=== PATIENT | female | born 1950 | race Caucasian/White ===

== ENCOUNTER → 2016-03-24 | Outpatient (CLI) | payer BC ==
[~2016-03-24] MED LIST: CALC-654 PO; FERR-84 PO; MULT-35 PO
--- NOTE | 2016-03-24 19:04 | Diagnostic Imaging Report ---
EXAMINATION: Digital mammogram bilateral screening. INDICATION: Screening. COMPARISON: This study was compared to the prior exam of 09/21/2015, 03/13/2015, and 01/18/2011. At this time, there are no current complaints. The current study was also evaluated with a Computer Aided Detection (CAD) system. FINDINGS: The fibroglandular tissue in both breasts is extremely dense. This does limit the sensitivity of this exam. The screening mammogram performed on 03/13/2015 noted 2 cm asymmetric density along the medial aspect of the right breast on the XCC view. The subsequent diagnostic mammogram and ultrasound exam of 03/23/2015 indicated that this was most likely due to fibroglandular tissue. This finding did seem stable on the followup mammogram of 09/21/2015. On this exam, the area in question has not changed. Most likely, this is due to fibroglandular tissue alone. The calcifications in the mid portion of the right breast seen previously are also again visualized and no different. There is no primary or secondary sign of malignancy noted. IMPRESSION: There is no evidence for malignancy. ACR BI-RADS Category 1: Negative. Result letter will be mailed to the patient. Note: At least 10% of breast cancer is not imaged by mammography. Dictated by: Dictated on workstation # [id number]
== END ==
LOC: RAD 15:12
PROVIDERS: ATTEND Family Medicine
DX: Z12.31 Encounter for screening mammogram for malignant neoplasm of breast (principal)

== ENCOUNTER 2016-04-20 05:38 | Outpatient (CLI) | payer BC ==
[~2016-04-20] VITALS: Ht 167.6 cm; Wt 65.3 kg
--- OUTSIDE RECORDS SUMMARY | 2016-04-20 05:40 | XMS REPORT | Continuity of Care Document ---
Author Author [facility] Organization [facility] Address Unknown Phone Unavailable Allergies Active Description Code Type Severity Reaction Onset Reported/Identified Relationship to Patient Clinical Status Yes No Known Drug Allergies [id number] Drug Allergy Unknown N/ A 04/16/2012 Medications Problems Date Dx Coded Attending Type Code Diagnosis Diagnosed By 04/16/2012 Ot 211.4 BENIGN NEOPL RECTUM/ANUS 04/16/2012 Ot 562.10 DIVERTICULOSIS COLON (W/O MENT OF HEMORR 04/16/2012 Ot V18.51 FAMILY HISTORY, COLONIC POLYPS 04/16/2012 Ot V76.51 SCREEN MAL NEOP-COLON 03/23/2015 Ot V72.84 03/23/2015 BRENNA IVAN MDYD R Ot R92.8 03/23/2015 RADHA IVAN MD R Ot Z12.31 03/27/2015 MONCHO HEATH, RADHA R Ot R92.8 03/27/2015 MONCHO HEATH RADHA R Ot Z12.31 04/09/2015 MONCHO HEATH, RADHA R Ot R92.8 08/29/2015 Ot V72.84 EXAM PRE-OPERATIVE NOS 08/29/2015 RADHA IVAN MD R Ot R92.8 OTH ABN AND INCONCLUSIVE FINDINGS ON DX 08/29/2015 RADHA IVAN MD R Ot Z12.31 ENCNTR SCREEN MAMMOGRAM FOR MALIGNANT NE 08/29/2015 RADHA IVAN MD R Ot R92.8 OTH ABN AND INCONCLUSIVE FINDINGS ON DX 09/07/2015 Ot V72.84 EXAM PRE-OPERATIVE NOS 09/07/2015 RADHA IVAN MD R Ot R92.8 OTH ABN AND INCONCLUSIVE FINDINGS ON DX 09/07/2015 RADHA IVAN MD R Ot Z12.31 ENCNTR SCREEN MAMMOGRAM FOR MALIGNANT NE 09/07/2015 RADHA IVAN MD R Ot R92.8 OTH ABN AND INCONCLUSIVE FINDINGS ON DX 09/22/2015 RADHA IVAN MD R Ot R92.8 OTH ABN AND INCONCLUSIVE FINDINGS ON DX 10/09/2015 RADHA IVAN MD R Ot R92.8 OTH ABN AND INCONCLUSIVE FINDINGS ON DX 10/21/2015 Ot V72.84 EXAM PRE-OPERATIVE NOS 10/21/2015 RADHA IVAN MD R Ot R92.8 OTH ABN AND INCONCLUSIVE FINDINGS ON DX 10/21/2015 RADHA IVAN MD R Ot Z12.31 ENCNTR SCREEN MAMMOGRAM FOR MALIGNANT NE 10/21/2015 RADHA IVAN MD R Ot R92.8 OTH ABN AND INCONCLUSIVE FINDINGS ON DX 10/21/2015 RADHA IVAN MD R Ot R92.8 OTH ABN AND INCONCLUSIVE FINDINGS ON DX 03/25/2016 RADHA IVAN MD R Ot Z12.31 ENCNTR SCREEN MAMMOGRAM FOR MALIGNANT NE 03/25/2016 RADHA IVAN MD R Ot Z12.31 ENCNTR SCREEN MAMMOGRAM FOR MALIGNANT NE 04/06/2016 RADHA IVAN MD R Ot Z12.31 ENCNTR SCREEN MAMMOGRAM FOR MALIGNANT NE Procedures Results Encounters ACCT No. Visit Date/Time Discharge Status Pt. Type Provider Facility Loc./Unit Complaint [id number] 03/24/2016 15:12:00 ACT Outpatient RADHA IVAN MD [facility] RAD SCREENING [id number] 09/21/2015 13:53:00 ACT Outpatient RADHA IVAN MD [facility] RAD ABNORMAL MAMMO FOLLOW UP [id number] 03/23/2015 14:09:00 ACT Outpatient RADHA IVAN MD [facility] RAD LOBULATED 2 CM ASYMMETRY MEDIAL RT BREAST [id number] 03/23/2015 14:09:00 Document Registration [id number] 03/13/2015 14:40:00 ACT Outpatient RADHA IVAN MD [facility] RAD GABBI MAMMO SCREENING [id number] 04/16/2012 06:38:00 Document Registration [id number] 04/12/2012 08:43:00 Document Registration
[2016-04-20] MEDS ORDERED: FERR-84 PO (16:03)
[2016-04-20] MEDS ORDERED: MULT-35 PO (16:03)
[2016-04-20] MEDS ORDERED: CALC-654 PO (16:03)
== END 2016-04-20 16:08 ==
LOC: PREOP 05:38
PROVIDERS: ATTEND Surgery
DX: Z01.818 Encounter for other preprocedural examination (principal); Z86.010 Personal history of colon polyps

== ENCOUNTER 2016-04-22 07:53 | Day surgery (SDC) | payer BC ==
[~2016-04-22] VITALS: Ht 167.6 cm; Wt 65.3 kg
--- OUTSIDE RECORDS SUMMARY | 2016-04-22 07:56 | XMS REPORT | Continuity of Care Document ---
Author Author [facility] Organization [facility] Address Unknown Phone Unavailable Care Team Providers Care Hot Repairman Name Role Phone RADHA IVAN MD PCP Insurance Providers Payer Name Policy Number Subscriber Name Relationship [facility] [id number] Jorge Evans D 01 Advance Directives Directive Response Recorded Date/Time Advance Directives No 04/20/16 4:01pm Health Care Power of Roll Winder No 04/20/16 4:01pm Organ Donor Yes 04/16/12 7:19am Resuscitation Status Full Code 04/20/16 4:01pm Problems No problem information available. Medications Current Home Medications Medication Dose Units Route Directions Days/Qty Instructions Start Date Multivitamin 1 Each 1 Each Oral Daily 04/20/16 Calcium Carbonate/Vitamin D3 1 Each 1 Each Oral Daily 04/20/16 Ferrous Sulfate 325 Mg 325 Mg Oral Daily 04/20/16 Social History Social History Problem Response Recorded Date/Time Alcohol Use Denies Use 04/20/2016 4:01pm Recreational Drug Use No 04/20/2016 4:01pm Recent Foreign Travel No 04/20/2016 3:58pm Recent Infectious Disease Exposure No 04/20/2016 3:58pm Sexually Transmitted Disease No 04/20/2016 4:01pm HIV/AIDS No 04/20/2016 4:01pm Smoking Status Former Smoker 04/20/2016 4:01pm Recent Hopitalizations No 04/20/2016 4:01pm Sexually Transmitted Disease No 04/20/2016 4:01pm Query Response Start Date Stop Date Smoking Status Former Smoker Hospital Discharge Instructions No hospital discharge instructions. Plan of Care Discharge Date 04/20/16 4:08pm Prescriptions See Medication Section Functional Status No functional status results. Allergies, Adverse Reactions, Alerts No known allergies. Immunizations No immunization records. Vital Signs Acute Vital Signs Vital Response Date/Time Height (Feet) 5 feet 04/20/2016 3:57pm Height (Inches) 6.00 inches 04/20/2016 3:57pm Height (Calculated Centimeters) 167.998194 cm 04/20/2016 3:57pm Weight (Pounds) 144 pounds 04/20/2016 3:57pm Weight (Ounces) 0.0 oz 04/20/2016 3:57pm Weight (Calculated Grams) 21495.30 gm 04/20/2016 3:57pm Weight (Calculated Kilograms) 65.837922 kilograms 04/20/2016 3:57pm Calculated BMI 23.2 04/20/2016 3:57pm Results No known relevant diagnostic tests, laboratory data and/or discharge summary. Procedures No known history of procedures. Encounters Encounter Location Arrival/Admit Date Discharge/Depart Date Attending Provider Departed Clinic [facility] 04/20/16 5:38am 04/20/16 4: 08pm CAROLYN OAKES MD Registered Clinic [facility] 03/24/16 3:12pm RADHA IVAN MD
--- OUTSIDE RECORDS SUMMARY | 2016-04-22 07:56 | XMS REPORT | Continuity of Care Document ---
Author Author [facility] Organization [facility] Address Unknown Phone Unavailable Care Team Providers Care Charge Master Analyst Name Role Phone RADHA IVAN MD PCP Insurance Providers Payer Name Policy Number Subscriber Name Relationship [facility] [id number] Jorge Evans D 01 Advance Directives Directive Response Recorded Date/Time Advance Directives No 04/20/16 4:01pm Health Care Power of Licensing Director No 04/20/16 4:01pm Organ Donor Yes 04/16/12 [...] 6.00 inches 04/20/2016 3:57pm Height (Calculated Centimeters) 167.718640 cm 04/20/2016 3:57pm Weight (Pounds) 144 pounds 04/20/2016 3:57pm Weight (Ounces) 0.0 oz 04/20/2016 3:57pm Weight (Calculated Grams) 77272.30 gm 04/20/2016 3:57pm Weight (Calculated Kilograms) 65.230036 kilograms 04/20/2016 3:57pm Calculated BMI 23.2 04/20/2016 3:57pm Results No known relevant diagnostic tests, laboratory data and/or discharge summary. Procedures No known history of procedures. Encounters Encounter Location Arrival/Admit Date Discharge/Depart Date Attending Provider Departed Clinic [facility] 04/20/16 5:38am 04/20/16 4: 08pm CAROLYN OAKES MD Registered Clinic [facility] 03/24/16 3:12pm RADHA IVAN MD
[2016-04-22 08:05] VITALS: BP 134/108
[2016-04-22] MEDS ORDERED: NS IV 500 ML 500 ML ONE (08:09)
[2016-04-22] MEDS ORDERED: NALOXONE 0.4 MG/ML 1 ML (NARCAN) VIAL IVP PRN (08:15)
[2016-04-22] MEDS ORDERED: NS IV 500 ML 500 ML IV PRN (08:15)
[2016-04-22] MEDS ORDERED: FLUMAZENIL (ROMAZICON) 0.1 MG/ML 5 ML VIAL INJ PRN (08:15)
--- NOTE | 2016-04-22 08:35 | Pre-Op Note & Conscious Sedat ---
Pre-Operative Progress Note H&P Reviewed The H&P was reviewed, patient examined and no changes noted. Date H&P Reviewed: Apr 22, 2016 Time H&P Reviewed: 08:34 Pre-Op Diagnosis: Screening Conscious Sedation Pre-Proced ASA Class: 2 Airway Mallampati Classification: ([place] appropriate class) I. II. III, IV Lungs Heart ASA score ASA 1: a normal healthy patient ASA 2: a patient with a mild systemic disease (mid diabetes, controlled hypertension, obesity ASA 3: a patient with a severe systemic disease that limits activity (angina , COPD, prior Myocardial infarction) ASA 4: a patient with an incapacitating disease that is a constant threat to life (CHF, renal failure) ASA 5: a moribund patient not expected to survive 24 hrs. (ruptured aneurysm) ASA 6: a declared brain patient whose organs are being harvested. For emergent operations, add the letter E after the classification Grade 1 Sedation Plan: Discussed options with patient/fam Note The patient is an appropriate candidate to undergo the planned procedure, sedation, and anesthesia. The patient immediately re-assessed prior to indication. CAROLYN OAKES MD Apr 22, 2016 8:34 am
[2016-04-22] MEDS ORDERED: MIDAZOLAM 2 MG/2 ML (VERSED) VIAL ONE ×3 (09:02)
[2016-04-22] MEDS ORDERED: fentaNYL INJECTION 100 MCG/2 ML AMP ONE ×2 (09:02)
[2016-04-22] MEDS: fentaNYL INJECTION 100 MCG/2 ML AMP IVP PRN ×3 (09:03→09:15)
[2016-04-22] MEDS: MIDAZOLAM 2 MG/2 ML (VERSED) VIAL IVP PRN ×3 (09:05→09:12)
--- NOTE | 2016-04-22 09:24 | Progress Note-Post Operative ---
Post-Operative Progess Note Pre-Operative Diagnosis Screening Post-Operative Diagnosis normal examination Post-Op Procedure Note Date of Procedure: Apr 22, 2016 Name of Procedure: colonoscopy to cecum Anesthesia Type sedation CAROLYN OAKES MD Apr 22, 2016 9:24 am
--- NOTE | 2016-04-22 09:25 | Discharge Inst-Simple/Standard ---
Discharge Inst-Standard Discharge Medications New, Converted or Re-Newed RX: Other Patient Instructions/Follow Up Plan of Care/Instructions/FU: repeat colonoscopy in 5 years Activity as Tolerated: Yes Discharge Diet: No Restrictions CAROLYN OAKES MD Apr 22, 2016 9:25 am
--- NOTE | 2016-04-22 09:54 | OPERATIVE REPORT ---
PROCEDURE PHYSICIAN: CAROLYN OAKES DATE OF PROCEDURE: 04/22/2016 PROCEDURE: Surveillance colonoscopy. SURGEON: Dr. Oakes. INDICATION FOR THE PROCEDURE: This lady was found to have a rectal polyp in 2012. In addition, she reported a family history of polyps in her father. She came in for surveillance colonoscopy. Informed consent was obtained after reviewing the procedure in detail. DESCRIPTION OF PROCEDURE: She was placed in left lateral decubitus position and her vital signs were monitored. Conscious sedation was achieved using Versed and fentanyl. Digital rectal examination was unremarkable. The colonoscope was then introduced into the rectum and advanced all the way up to the cecum. The quality of bowel preparation was excellent. The scope was then withdrawn slowly and the mucosa examined in a systematic fashion. There was no abnormality. Specifically, there was no recurrence of the polyp. She tolerated the procedure well and was taken back to the nursing area in a stable condition. IMPRESSION: 1. Polyp surveillance. No recurrence. 2. Recommend repeating in 5 years. Job ID: [id number] Dictated Date: 04/22/2016 09:23:24 Sales Representative Aircraft Date: 04/22/2016 09:51:59 / pete [email or web address]
[2016-04-22 09:55] VITALS: BP 127/68
[2016-04-22 10:19] VITALS: BP 127/78
[2016-04-22 10:35] VITALS: BP 127/78
== END 2016-04-22 10:35 | disposition home or self-care (01) ==
LOC: ENDO 07:53
PROVIDERS: ATTEND Surgery
DX: Z12.11 Encounter for screening for malignant neoplasm of colon (principal); Z86.010 Personal history of colon polyps; Z83.71 Family history of colonic polyps

== ENCOUNTER → 2017-07-21 | Outpatient (CLI) | payer MEDICARE, OTHER ==
--- NOTE | 2017-07-21 17:45 | Diagnostic Imaging Report ---
INDICATION: Routine screening. Comparison is made with prior mammograms from 03/24/2016 and 03/13/2015. 2-D and 3-D bilateral screening mammography was performed with CAD. The current study was also evaluated with a Computer Aided Detection (CAD) system. FINDINGS: Both breasts again demonstrate marked parenchymal heterogeneity and increased density, limiting the sensitivity of mammography. The parenchymal pattern appears stable. There are benign calcifications bilaterally. No dominant mass or malignant-appearing microcalcifications are seen. The axillae are unremarkable. IMPRESSION: No mammographic features suspicious for malignancy are identified. ACR BI-RADS Category 2: Benign findings. Result letter will be mailed to the patient. Note: At least 10% of breast cancer is not imaged by mammography. Dictated by: Dictated on workstation # [id number]
== END ==
LOC: RAD 13:18
PROVIDERS: ATTEND Family Medicine
DX: Z12.31 Encounter for screening mammogram for malignant neoplasm of breast (principal); N90.89 Other specified noninflammatory disorders of vulva and perineum
CPT/HCPCS: 77067

== ENCOUNTER → 2018-07-24 | Outpatient (CLI) | payer MEDICARE, OTHER ==
--- NOTE | 2018-07-25 10:30 | Diagnostic Imaging Report ---
INDICATION: Routine screening. COMPARISON: 07/21/2017 and 03/24/2016. TECHNIQUE: 2D and 3D bilateral screening mammography was performed with CAD. FINDINGS: Both breasts are heterogeneously dense, limiting the sensitivity of mammography. The parenchymal pattern is stable. No mass or malignant appearing microcalcifications are seen. The axillae are unremarkable. IMPRESSION: No mammographic features suspicious for malignancy are identified. ACR BI-RADS Category 1: Negative. Result letter will be mailed to the patient. Note: At least 10% of breast cancer is not imaged by mammography. Dictated by: Dictated on workstation # [id number]
== END ==
LOC: RAD 15:00
PROVIDERS: ATTEND Family Medicine
DX: Z12.31 Encounter for screening mammogram for malignant neoplasm of breast (principal)
CPT/HCPCS: 77067

== ENCOUNTER → 2019-04-26 | Outpatient (CLI) | payer MEDICARE, OTHER | LOC: CARD 12:50 | PROVIDERS: ATTEND Internal Medicine | DX: I49.9 Cardiac arrhythmia, unspecified (principal); R00.2 Palpitations | CPT/HCPCS: 93005 ==

== ENCOUNTER → 2019-09-18 | Outpatient (CLI) | payer MEDICARE, OTHER ==
--- NOTE | 2019-09-19 08:44 | Diagnostic Imaging Report ---
INDICATION: Routine screening. COMPARISON: 07/24/2018 and 07/21/2017. TECHNIQUE: 2D and 3D bilateral screening mammography was performed with CAD. FINDINGS: Both breasts are heterogeneously dense, limiting the sensitivity of mammography. The parenchymal pattern appears stable. No dominant mass or malignant appearing microcalcifications are seen. The axillae are unremarkable. IMPRESSION: No mammographic features suspicious for malignancy are identified. ACR BI-RADS Category 2: Benign findings. Result letter will be mailed to the patient. Note: At least 10% of breast cancer is not imaged by mammography. Dictated by: Dictated on workstation # [id number]
== END ==
LOC: RAD 15:21
PROVIDERS: ATTEND Internal Medicine
DX: Z12.31 Encounter for screening mammogram for malignant neoplasm of breast (principal)
CPT/HCPCS: 77063; 77067

== ENCOUNTER → 2020-09-24 | Outpatient (CLI) | payer MEDICARE, OTHER ==
--- NOTE | 2020-09-24 10:28 | Diagnostic Imaging Report ---
INDICATION: Routine screening. Comparison is made with prior mammogram 09/18/2019 and 07/24/2018. 2-D and 3-D bilateral screening mammography was performed with CAD. Both breasts are heterogeneously dense, limiting the sensitivity of mammography. A benign nodule in the outer right breast posterior depth is stable. No new mass or malignant-appearing microcalcifications are seen. There are benign calcifications. Axillae are unremarkable. IMPRESSION: BI-RADS Category 2 No mammographic features suspicious for malignancy are identified. ACR BI-RADS Category 2: Benign findings. Result letter will be mailed to the patient. Note: At least 10% of breast cancer is not imaged by mammography. Dictated by: Dictated on workstation # [id number]
== END ==
LOC: RAD 07:30
PROVIDERS: ATTEND Internal Medicine
DX: Z12.31 Encounter for screening mammogram for malignant neoplasm of breast (principal)
CPT/HCPCS: 77063; 77067

== ENCOUNTER → 2021-12-17 | Outpatient (CLI) | payer MEDICARE, OTHER ==
--- NOTE | 2021-12-17 19:01 | Diagnostic Imaging Report ---
INDICATION: Routine screening. COMPARISON: Prior mammograms from 09/24/2020 09/18/2019. EXAMINATION: 2D and 3D bilateral screening mammography was performed with CAD. The current study was also evaluated with a Computer Aided Detection (CAD) system. FINDINGS: Both breasts are heterogeneously dense, limiting the sensitivity of mammography. Intraparenchymal lymph node in the outer right breast appears stable. No new mass or malignant-appearing microcalcifications are seen. Axillae are unremarkable. IMPRESSION: No mammographic features suspicious for malignancy are identified. ACR BI-RADS Category 2: Benign findings. Result letter will be mailed to the patient. Note: At least 10% of breast cancer is not imaged by mammography. Dictated by: Dictated on workstation # [id number]
== END ==
LOC: RAD 14:23
PROVIDERS: ATTEND Internal Medicine
DX: Z12.31 Encounter for screening mammogram for malignant neoplasm of breast (principal)
CPT/HCPCS: 77063; 77067

== ENCOUNTER → 2022-12-23 | Outpatient (CLI) | payer OTHER ==
--- NOTE | 2022-12-23 12:20 | Diagnostic Imaging Report ---
Indication: Routine screening. Comparison is made with prior mammograms 12/17/2021 and 09/24/2020. 2-D and 3-D bilateral screening mammography was performed with CAD. Both breasts are heterogeneously dense, limiting the sensitivity of mammography. The parenchymal pattern is stable. No dominant mass or malignant-appearing microcalcifications are seen. Benign nodule outer right breast is stable. There are benign calcifications. Axillae are unremarkable. IMPRESSION: BI-RADS Category 2 No mammographic features suspicious for malignancy are identified. ACR BI-RADS Category 2: Benign findings. Result letter will be mailed to the patient. Note: At least 10% of breast cancer is not imaged by mammography. Dictated by: Dictated on workstation # [id number]
== END ==
LOC: RAD 07:37
PROVIDERS: ATTEND Internal Medicine
DX: Z12.31 Encounter for screening mammogram for malignant neoplasm of breast (principal)
CPT/HCPCS: 77063; 77067